=== PATIENT | female | born 1970 | race Caucasian/White ===

== ENCOUNTER 2023-01-08 09:01 | Emergency (ER) | payer OTHER ==
[~2023-01-08] VITALS: Ht 170.1 cm; Wt 87.5 kg
[~2023-01-08 09:01] MED LIST: CITALOPRAM HYDR10 MG PO; FENOFIBRATE160 MG PO; MOTRIN800 MG PO
[2023-01-08] MEDS ORDERED: MELOXICAM15 MG PO (11:34)
== END 2023-01-08 11:42 | disposition home or self-care (01) ==
LOC: ED 09:01
DX: S62.111A Displaced fracture of triquetrum [cuneiform] bone, right wrist, initial encounter for closed fracture (principal); F32.A Depression, unspecified; E78.00 Pure hypercholesterolemia, unspecified; Z88.0 Allergy status to penicillin; Z98.890 Other specified postprocedural states; W01.0XXA Fall on same level from slipping, tripping and stumbling without subsequent striking against object, initial encounter; Y93.E1 Activity, personal bathing and showering; Y92.89 Other specified places as the place of occurrence of the external cause; Y99.8 Other external cause status